=== PATIENT | male | born 1935 | race African-American/Black ===

== ENCOUNTER → 2016-08-25 | Outpatient (CLI) | payer MEDICARE, OTHER | END | disposition home or self-care (01) | LOC: LAB.O 16:53 | PROVIDERS: ATTEND Family Medicine | DX: I10 Essential (primary) hypertension (principal); E11.40 Type 2 diabetes mellitus with diabetic neuropathy, unspecified; E29.1 Testicular hypofunction; Z12.5 Encounter for screening for malignant neoplasm of prostate | CPT/HCPCS: 36415; 80053; 80061; 82043; 82550; 82570; 83036; 84403; 85025; G0103 ==

== ENCOUNTER → 2016-09-08 | Outpatient (CLI) | payer MEDICARE, OTHER ==
--- NOTE | 2016-09-10 04:30 | MRI ---
Procedure: MR BRAIN WITHOUT IV CONTRAST Exam Date: 09/08/2016 Ordering Provider: JACQUES CARRASCO Clinical Indication: PARKINSON'S DISEASE Comparison: 05/17/2016 CT head Technique: Multiplanar MRI of the brain was obtained without the administration of IV contrast. Findings: Mild cerebral and cerebellar volume loss. There is no midline shift or hydrocephalus. T2/FLAIR hyperintensities in the periventricular and subcortical white matter are nonspecific but likely related to chronic ischemic small vessel disease. There is normal signal in the cerebellum. There is normal signal within the brainstem. There is no evidence of an acute infarct. There is no parenchymal hemorrhage. The pituitary gland is normal in size. There are no pineal masses. There are normal intracranial vascular flow voids. The craniocervical junction is unremarkable. There is normal signal within the paranasal sinuses. The orbits are intact. IMPRESSION: 1. No acute intracranial abnormality demonstrated. 2. Mild chronic ischemic small vessel disease. Electronically signed by: Aidan Harrison MD 09/10/2016 4:31 AM CDT
--- NOTE | 2016-09-10 06:04 | MRI ---
Procedure: MR BRAIN ANGIOGRAPHY WITHOUT IV CONTRAST Exam Date: 09/08/2016 Ordering Provider: JACQUES CARRASCO Clinical Indication: NEUROPATHY Comparison: None Technique: Technique: 3-D [id number] MRA of the brain was obtained without the administration of IV contrast. 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 The intracranial segments of the internal carotid arteries are otherwise unremarkable. The anterior communicating artery is unremarkable. The anterior and middle cerebral arteries are unremarkable to the level of the A2 and M2 branches. The posterior cerebral arteries are unremarkable. Visualized vertebral arteries as well as the basilar artery are unremarkable. No MRA evidence of aneurysm measuring greater than 2 mm. MRA may be insensitive for the detection of smaller aneurysms. IMPRESSION: 1. 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 2. Examination is otherwise unremarkable. Electronically signed by: Aidan Harrison MD 09/10/2016 6:04 AM CDT
--- NOTE | 2016-09-10 06:22 | MRI ---
Procedure: MR BRAIN ANGIOGRAPHY WITHOUT IV CONTRAST Exam Date: 09/08/2016 Ordering Provider: JACQUES CARRASCO Clinical Indication: CERVICAL DISC DISORDER Comparison: None Technique: 3-D [id number] MRA of the neck was obtained without the administration of IV contrast. Findings: The innominate artery is patent without stenosis. The visualized subclavian arteries are patent without stenosis. The right common carotid artery is patent without stenosis. The cervical portion of the right internal carotid artery is patent without significant stenosis. The left common carotid artery is patent without stenosis. The cervical portion of the left internal carotid artery is patent without significant stenosis. The vertebral arteries are widely patent without stenosis. The basilar artery is normal. Impression: 1. Unremarkable MRA of the neck. No stenosis identified by criteria similar to NASCET. Electronically signed by: Aidan Harrison MD 09/10/2016 6:22 AM CDT
== END | disposition home or self-care (01) ==
LOC: LAB.O 10:50
PROVIDERS: ATTEND Psychiatry & Neurology Neurology
DX: G60.3 Idiopathic progressive neuropathy (principal); F01.50 Vascular dementia, unspecified severity, without behavioral disturbance, psychotic disturbance, mood disturbance, and anxiety; G20 Parkinson's disease; M50.123 Cervical disc disorder at C6-C7 level with radiculopathy; M51.16 Intervertebral disc disorders with radiculopathy, lumbar region; Z01.812 Encounter for preprocedural laboratory examination

== ENCOUNTER → 2017-07-13 | Outpatient (CLI) | payer MEDICARE, OTHER ==
--- NOTE | 2017-07-14 08:32 | US ---
EXAM DESCRIPTION: Carotid Duplex CLINICAL HISTORY: OCCLUSION AND STENOSIS OF ALEJANDRO CAR ARTERIES COMPARISON: None Available. TECHNIQUE: Carotid Doppler ultrasound FINDINGS: Right Submitted images show no significant stenosis is seen in the common carotid, internal carotid or external carotid arteries. Intimal thickening is seen in the common carotid artery with mild calcified plaque at the right carotid bulb. The following flow velocities were obtained: Common carotid artery peak systolic flow velocity measures 66 cm/s. Internal carotid artery peak systolic flow velocity measures 69 cm/s. External carotid artery peak systolic flow velocity measures 60.6 cm/s. Flow in the right vertebral artery is antegrade. The right internal carotid to common carotid peak systolic flow velocity ratio equals 1.0 which is normal. Left Submitted images show normal caliber of the left common carotid, internal carotid and external carotid arteries with no significant stenosis. There is diffuse intimal thickening of the left common carotid artery which is mildly tortuous. Mild plaque at the left carotid bulb. The following flow velocities were obtained: Common carotid artery peak systolic flow velocity measures 81 cm/s. Internal carotid artery peak systolic flow velocity measures 60 cm/s. External carotid artery peak systolic flow velocity measures 76 cm/s. Flow in the left vertebral artery is antegrade. The left internal carotid to common carotid peak systolic flow velocity ratio of 0.7 is normal. IMPRESSION: No significant stenosis. Electronically signed by: Paco Ly MD 07/14/2017 8:30 AM CDT
== END ==
LOC: US 15:11
PROVIDERS: ATTEND Family Medicine
DX: I65.23 Occlusion and stenosis of bilateral carotid arteries (principal)

== ENCOUNTER → 2018-01-26 | Outpatient (CLI) | payer MEDICARE, OTHER | LOC: GMAJ 17:17 | PROVIDERS: ATTEND Family Medicine | DX: Z12.5 Encounter for screening for malignant neoplasm of prostate (principal) ==

== ENCOUNTER → 2019-01-24 | Outpatient (CLI) | payer MEDICARE, OTHER ==
--- NOTE | 2019-01-25 08:58 | CT ---
EXAM DESCRIPTION: Abdomen w/o Contrast CLINICAL HISTORY: 83 years, Male, INTRA-ABDOMINAL AND PELVIC PAIN COMPARISON: None. TECHNIQUE: CT of the abdomen is performed according to our non contrast protocol. FINDINGS: Small nodular densities associated with pleural surfaces consistent with intrapulmonary lymph nodes near the right minor fissure, right major fissure and left lower lobe posterior pleural surface. No other nodules to suggest a malignant process. The lung bases are otherwise clear. Heart is prominent in size. Liver, spleen, and pancreas are unremarkable. No calcified stones in the gallbladder. Adrenal glands appear normal. No right renal stones or hydronephrosis. Multiple renal lesions consistent with cysts. The largest in the posterior mid to upper left kidney measures 4.6 cm. Density measurements range from 8-16 Hounsfield units, consistent with cystic nature. Left renal calculus in the posterior mid left kidney measures 5 mm. Calcification in the upper left renal hilum is vascular. Multiple left renal lesions consistent with cysts. The largest in the posterolateral mid left kidney measures 4.6 cm. Cystic structure which could be an enlarged renal pelvis or parapelvic cyst in the hilum measures 4.9 cm. Parapelvic cyst is favored. IV contrast would be needed to clarify this however. The left renal lesions have density measurements 12-16 Hounsfield units consistent with cysts. Small bowel loops appear normal in caliber with normal wall thickness. There is no lymphadenopathy, inflammation, or free fluid observed. Coronal and sagittal reformatted images confirm the findings. IMPRESSION: Nonobstructing left renal calculus 5 mm. Multiple renal lesions consistent with cysts. This exam was performed according to our departmental dose-optimization program, which includes automated exposure control, adjustment of the mA and/or kV according to patient size and/or use of iterative reconstruction technique. Total DLP equals 617.79 mGycm. Electronically signed by: Paco Ly MD 01/25/2019 8:57 AM CDT
== END ==
LOC: CT 14:00
PROVIDERS: ATTEND Family Medicine
DX: R19.00 Intra-abdominal and pelvic swelling, mass and lump, unspecified site (principal); N20.0 Calculus of kidney; K76.9 Liver disease, unspecified

== ENCOUNTER 2019-10-02 21:10 | Emergency (ER) | payer MEDICARE, OTHER ==
[2019-10-02] MEDS ORDERED: cloNIDine HCL 0.1 MG TAB PO ONE (21:33)
--- NOTE | 2019-10-02 21:37 | ED.PDOC ---
History of Present Illness - General Chief Complaint: Blood Pressure Problem Stated Complaint: elevated Blood pressure Time Seen by Provider: 10/02/19 21:11 Source: patient, family - Exam Limitations: no limitations - History of Present Illness Initial Comments: Pt reports he went in for general checkup at ~10a this morning. He had his vitals checked and saw a nurse, but didn't see a physician. He wasn't discharged with any information other than that he should check his BP at 8p tonight to see if it was any better. He checked his BP at 8p and said it was 169/111. He says he feels at baseline and has no symptoms of any kind. He denies CP, SOB, ANN, dizziness, palpitations, KASEY. He said his appetite is normal, has nl UOP and BM's. He says he's had the dx of HTN for "a long time," but hasn't taken his BP "for a while." He couldn't specify the last time he took his BP regularly. I also spoke to , who corroborated the above story. Improving Factors: nothing Worsening Factors: nothing Associated Symptoms: denies symptoms Allergies/Adverse Reactions: Allergies NO KNOWN ALLERGY Allergy (Verified 10/02/19 21:54) Home Medications: Ambulatory Orders Amlodipine Besylate-Valsartan [Amlodipine Besylate/Valsa 10-320 mg] 1 tab PO 10/02/19 Amlodipine Besylate-Valsartan [Amlodipine Besylate/Valsa 5-160 mg] 1 tab PO DAILY #30 tab 10/02/19 Aspirin [Aspirin Childrens] 81 mg PO DAILY 10/02/19 Carvedilol Phosphate [Coreg Cr] 40 mg PO 10/02/19 Donepezil HCl [Aricept] 5 mg PO 10/02/19 Memantine [Namenda] 10 mg PO 10/02/19 Metformin HCl [Metformin Hydrochloride E] 500 mg PO BID 10/02/19 Pramipexole Dihydrochloride [Mirapex] 0.25 mg PO BEDTIME 10/02/19 RX: Carvedilol 12.5 mg PO 10/02/19 RX: Desloratadine 10/02/19 RX: Glimepiride 2 mg PO 10/02/19 RX: Pravastatin Sodium 40 mg PO DAILY 10/02/19 Review of Systems - Review of Systems Constitutional: States: no symptoms reported. Denies: chills, diaphoresis, fever, malaise, weakness, other EENTM: States: no symptoms reported Respiratory: States: no symptoms reported. Denies: cough, orthopnea, short of breath Cardiology: States: no symptoms reported. Denies: chest pain, edema, palpitations, syncope Gastrointestinal/Abdominal: States: no symptoms reported. Denies: abdominal pain, constipation, diarrhea, nausea, vomiting Genitourinary: States: no symptoms reported. Denies: dysuria, frequency, hematuria Musculoskeletal: States: no symptoms reported. Denies: back pain Skin: States: no symptoms reported Neurological: States: no symptoms reported Endocrine: States: no symptoms reported Past Medical History (General) - Patient Medical History Hx Congestive Heart Failure: No Hx Hypertension: Yes Hx Diabetes: Yes - Vaccination History Hx Tetanus, Diphtheria Vaccination: No - Social History Hx Tobacco Use: No Hx Chewing Tobacco Use: No Hx Alcohol Use: No Hx Substance Use: No Hx Substance Use Treatment: No Hx Depression: No - Female History Patient : No Family Medical History - Family History Mother Family History: Unknown Living Status: Unknown Physical Exam - Physical Exam General Appearance: Alert, Comfortable, No apparent distress Eyes, Ears, Nose, Throat Exam: PERRL/EOMI, normal ENT inspection Neck: non-tender Respiratory: chest non-tender, lungs clear, normal breath sounds, no respiratory distress, no accessory muscle use Cardiovascular/Chest: normal peripheral pulses, regular rate, rhythm, no edema, no gallop, no JVD, no murmur Gastrointestinal/Abdominal: normal bowel sounds, non tender, soft, no organomegaly, no pulsatile mass Extremity: normal range of motion, no pedal edema Neurologic: alert, normal mood/affect, oriented x 3 Skin Exam: normal color Progress - Progress Progress: 10/02/19 21:38 Considering pt asymptomatic, will do basic workup to ensure no underlying acute issue. Pt understands goal is not to normalize BP but to ensure it is improving. 10/02/19 21:32 Laboratory Results WBC 4.6 K/mm3 (4.8-10.8) L 10/02/19 21:40 RBC 4.66 M/mm3 (4.70-6.10) L 10/02/19 21:40 Hgb 11.5 gm/dL (14.0-18.0) L 10/02/19 21:40 Hct 35.3 % (42.0-52.0) L 10/02/19 21:40 MCV 75.8 fl (80.0-94.0) L 10/02/19 21:40 MCH 24.7 pg (27.0-31.0) L 10/02/19 21:40 MCHC 32.6 g/dL (33.0-37.0) L 10/02/19 21:40 RDW 16.3 % (11.5-14.5) H 10/02/19 21:40 Plt Count 132 K/mm3 (130-400) 10/02/19 21:40 MPV 9.5 fl (7.40-10.4) 10/02/19 21:40 Absolute Neuts (auto) 2.30 K/uL (1.8-6.8) 10/02/19 21:40 Absolute Lymphs (auto) 1.80 K/uL (1.0-3.4) 10/02/19 21:40 Absolute Monos (auto) 0.40 K/uL (0.2-0.8) 10/02/19 21:40 Absolute Eos (auto) 0.10 K/uL (0.0-0.4) 10/02/19 21:40 Absolute Basos (auto) 0.00 K/uL (0.0-0.1) 10/02/19 21:40 Neutrophils % 49.7 % (42.0-78.0) 10/02/19 21:40 Lymphocytes % 39.3 % (20.0-50.0) 10/02/19 21:40 Monocytes % 9.2 % (2.0-9.0) H 10/02/19 21:40 Eosinophils % 1.2 % (1.0-5.0) 10/02/19 21:40 Basophils % 0.6 % (0.0-2.0) 10/02/19 21:40 Normal RBC Morphology 1+aniso 1+hypochromia 1+ovalocytes Plts shira adequate Stain quality accept 10/02/19 21:40 Normal RBC Morphology 1+aniso 1+hypochromia 1+ovalocytes Plts shira adequate Stain quality accept 10/02/19 21:40 Normal RBC Morphology 1+aniso 1+hypochromia 1+ovalocytes Plts shira adequate Stain quality accept 10/02/19 21:40 Normal RBC Morphology 1+aniso 1+hypochromia 1+ovalocytes Plts shira adequate Stain quality accept 10/02/19 21:40 Normal RBC Morphology 1+aniso 1+hypochromia 1+ovalocytes Plts shira adequate Stain quality accept 10/02/19 21:40 Sodium 140 mmol/L (135-145) 10/02/19 21:40 Potassium 4.0 mmol/L (3.6-5.0) 10/02/19 21:40 Chloride 105 mmol/L (101-111) 10/02/19 21:40 Carbon Dioxide 28 mmol/L (21-31) 10/02/19 21:40 Anion Gap 11.0 (12-18) L 10/02/19 21:40 BUN 21 mg/dL (7-18) H 10/02/19 21:40 Creatinine 1.63 mg/dL (0.6-1.3) H 10/02/19 21:40 BUN/Creatinine Ratio 12.9 (10-20) 10/02/19 21:40 Random Glucose 119 mg/dL (70-105) H 10/02/19 21:40 Serum Osmolality 283.5 mOsm/L (275-295) 10/02/19 21:40 Calcium 8.9 mg/dL (8.4-10.2) 10/02/19 21:40 Total Bilirubin 0.9 mg/dL (0.2-1.0) 10/02/19 21:40 AST 14 IU/L (10-42) 10/02/19 21:40 ALT 11 IU/L (10-60) 10/02/19 21:40 Alkaline Phosphatase 75 IU/L (42-121) 10/02/19 21:40 Troponin I < 0.02 ng/mL (0.01-0.05) 10/02/19 21:40 Serum Total Protein 7.6 gm/dL (6.4-8.2) 10/02/19 21:40 Albumin 3.8 g/dl (3.2-5.5) 10/02/19 21:40 Globulin 3.8 gm/dL (2.3-3.5) H 10/02/19 21:40 Albumin/Globulin Ratio 1.0 (1.1-1.9) L 10/02/19 21:40 10/02/19 22:13 SBP down to 203. Pt still asymptomatic at this time. He denies CP, SOB, palpitations, ANN at this time. Pt has reported 0/10 pain throughout and has not appeared in any general or resp distress throughout stay. Discussed workup with pt and spouse. I stressed urgency of compliance with BP meds and need for close f/u so that BP continues to improve. Since pt's HR ~60 bpm at this time, will not restart carvedilol. I explained to pt and that he will have to be tapered up on BP meds. I asked that they monitor BP and keep BP log, and to contact Dr. Guerrero starting tomorrow to continue to work on lowering BP. - EKG/XRAY/CT EKG: Sinus - nl ST segments, nl intervals, nl axis, no q waves Departure - Departure Clinical Impression: Accelerated hypertension, Renal insufficiency, Noncompliance with medication regimen Time of Disposition: 22:15 Disposition: Discharge to Home or Self Care Condition: Fair Departure Forms: ED Discharge - Pt. Copy, Patient Portal Self Enrollment Instructions: DI for High Blood Pressure Diet: low salt diet Referrals: King Guerrero MD [Primary Care Provider] - 1 Week Prescriptions: Amlodipine Besylate-Valsartan [Amlodipine Besylate/Valsa 5-160 mg] 1 tab PO DAILY #30 tab Home Medications: Ambulatory Orders Amlodipine Besylate-Valsartan [Amlodipine Besylate/Valsa 10-320 mg] 1 tab PO 10/02/19 Amlodipine Besylate-Valsartan [Amlodipine Besylate/Valsa 5-160 mg] 1 tab PO DAILY #30 tab 10/02/19 Aspirin [Aspirin Childrens] 81 mg PO DAILY 10/02/19 Carvedilol Phosphate [Coreg Cr] 40 mg PO 10/02/19 Donepezil HCl [Aricept] 5 mg PO 10/02/19 Memantine [Namenda] 10 mg PO 10/02/19 Metformin HCl [Metformin Hydrochloride E] 500 mg PO BID 10/02/19 Pramipexole Dihydrochloride [Mirapex] 0.25 mg PO BEDTIME 10/02/19 RX: Carvedilol 12.5 mg PO 10/02/19 RX: Desloratadine 10/02/19 RX: Glimepiride 2 mg PO 10/02/19 RX: Pravastatin Sodium 40 mg PO DAILY 10/02/19 Additional Instructions: Please check blood pressure twice daily and keep log. Continue to stay in close contact with primary physician to continue adjusting blood pressure meds.
[2019-10-02 21:43] VITALS: TEMP 98.2
[2019-10-02 22:23] VITALS: O2SAT 99
[2019-10-02] MEDS ORDERED: amLODIPine BESYLATE 5 MG TAB ONE (22:46)
[2019-10-02] MEDS ORDERED: VALSARTAN 80 MG TAB ONE (22:47)
[2019-10-02] MEDS ORDERED: amLODIPine BESYLATE 5 MG TAB PO ONE (22:51)
[2019-10-02] MEDS ORDERED: VALSARTAN 80 MG TAB PO ONE (22:51)
[2019-10-02 23:04] VITALS: BP 204/82
== END 2019-10-02 23:04 | disposition home or self-care (01) ==
LOC: ER 21:10
DX: I10 Essential (primary) hypertension (principal); N28.9 Disorder of kidney and ureter, unspecified; E11.9 Type 2 diabetes mellitus without complications; Z91.14 Patient's other noncompliance with medication regimen; Z79.899 Other long term (current) drug therapy; Z79.82 Long term (current) use of aspirin

== ENCOUNTER 2020-01-09 23:33 | Emergency (ER) | payer MEDICARE, OTHER ==
--- NOTE | 2020-01-10 00:04 | ED.PDOC ---
History of Present Illness - General Chief Complaint: Blood Pressure Problem Stated Complaint: elevated BP Time Seen by Provider: 01/09/20 23:58 - History of Present Illness Initial Comments: 84 yo M pt of Dr. Guerrero [facility] HTN DM presents to the ED at bedside c/o 'blood pressure problems' today. Highest read 212/96. Pt. reports sporadic compliance with medication but is here at the behest of his . Denies fever cough sob recent travel or contact with covid19. Denies fever chills nausea vomiting diarrhea chest pain sob diaphoresis. No change in diet rest bowel or bladder. Denies drinking or smoking admits HTN DM. No other c/o today. PPE worn-N95 surgical mask with attached face shield over N95 gloves and face shield over that Allergies/Adverse Reactions: Allergies NO KNOWN ALLERGY Allergy (Verified 10/02/19 21:54) Home Medications: Ambulatory Orders Amlodipine Besylate-Valsartan [Amlodipine Besylate/Valsa 10-320 mg] 1 tab PO 10/02/19 Amlodipine Besylate-Valsartan [Amlodipine Besylate/Valsa 5-160 mg] 1 tab PO DAILY #30 tab 10/02/19 Aspirin [Aspirin Childrens] 81 mg PO DAILY 10/02/19 Carvedilol 12.5 mg PO 10/02/19 Carvedilol Phosphate [Coreg Cr] 40 mg PO 10/02/19 Desloratadine 10/02/19 Donepezil HCl [Aricept] 5 mg PO 10/02/19 Glimepiride 2 mg PO 10/02/19 Memantine [Namenda] 10 mg PO 10/02/19 Metformin HCl [Metformin Hydrochloride E] 500 mg PO BID 10/02/19 Pramipexole Dihydrochloride [Mirapex] 0.25 mg PO BEDTIME 10/02/19 Pravastatin Sodium 40 mg PO DAILY 10/02/19 Review of Systems - Review of Systems Constitutional: States: see HPI EENTM: States: see HPI Respiratory: States: see HPI Cardiology: States: see HPI Gastrointestinal/Abdominal: States: see HPI Genitourinary: States: see HPI Musculoskeletal: States: see HPI Skin: States: see HPI Neurological: States: see HPI Endocrine: States: see HPI Hematologic/Lymphatic: States: see HPI All other Systems: Reviewed and Negative Past Medical History (General) - Patient Medical History Hx Congestive Heart Failure: No Hx Hypertension: Yes Hx Diabetes: Yes - Vaccination History Hx Tetanus, Diphtheria Vaccination: No Hx Influenza Vaccination: Yes Hx Pneumococcal Vaccination: No - Social History Hx Tobacco Use: No Hx Chewing Tobacco Use: No Hx Alcohol Use: No Hx Substance Use: No Hx Substance Use Treatment: No Hx Depression: No - Female History Patient : No Family Medical History - Family History Mother Family History: Unknown Living Status: Unknown Physical Exam - Physical Exam General Appearance: No apparent distress Eye Exam: bilateral normal Ears, Nose, Throat: normal ENT inspection Neck: non-tender, full range of motion Respiratory: no respiratory distress Cardiovascular/Chest: regular rate, rhythm Gastrointestinal/Abdominal: non tender, soft Rectal Exam: deferred Back Exam: normal inspection Extremity: normal range of motion, non-tender Neurologic: no motor/sensory deficits Skin Exam: normal color Progress - Progress Progress: 01/10/20 00:05 A/P-HTN Medication Non Compliance-iv cbc cmp lipase troponin bnp ekg cxr surveillance monitor pulse ox reassess labetalol - Results/Orders Results/Orders: EKG-non specific TW changes No STEMI NSR 71bpm Laboratory Tests 01/10/20 01/10/20 01/10/20 00:15 00:20 00:20 WBC 4.2 L RBC 4.37 L Hgb 10.9 L Hct 33.5 L MCV 76.7 L MCH 24.9 L MCHC 32.5 L RDW 16.3 H Plt Count 134 MPV 9.3 Absolute Neuts (auto) 1.80 Absolute Lymphs (auto) 2.00 Absolute Monos (auto) 0.40 Absolute Eos (auto) 0.10 Absolute Basos (auto) 0.00 Neutrophils % 41.6 L Lymphocytes % 47.0 Monocytes % 9.5 H Eosinophils % 1.3 Basophils % 0.6 Normal RBC Morphology Stain quality accept PT 9.9 INR 1.00 PTT (SP) 24.0 Sodium Potassium Chloride Carbon Dioxide Anion Gap BUN Creatinine BUN/Creatinine Ratio Random Glucose Serum Osmolality Calcium Total Bilirubin AST ALT Alkaline Phosphatase Troponin I B-Natriuretic Peptide Serum Total Protein Albumin Globulin Albumin/Globulin Ratio Lipase Urine Color Yellow Urine Appearance Clear Urine pH 6.0 Ur Specific Pledger 1.020 Urine Protein Negative Urine Glucose (UA) Negative Urine Ketones Negative Urine Blood Negative Urine Nitrite Negative Urine Bilirubin Negative Urine Urobilinogen 0.2 Ur Leukocyte Esterase Negative Urine RBC 0 Urine WBC 0 Ur Epithelial Cells 0 Urine Bacteria 0 01/10/20 01/10/20 01/10/20 00:20 00:20 00:20 WBC RBC Hgb Hct MCV MCH MCHC RDW Plt Count MPV Absolute Neuts (auto) Absolute Lymphs (auto) Absolute Monos (auto) Absolute Eos (auto) Absolute Basos (auto) Neutrophils % Lymphocytes % Monocytes % Eosinophils % Basophils % Normal RBC Morphology PT INR PTT (SP) Sodium 143 Potassium 3.2 L Chloride 108 Carbon Dioxide 25 Anion Gap 13.2 BUN 20 H Creatinine 1.19 BUN/Creatinine Ratio 16.8 Random Glucose 133 H Serum Osmolality 289.5 Calcium 8.3 L Total Bilirubin 0.8 AST 14 ALT 11 Alkaline Phosphatase 61 Troponin I < 0.02 B-Natriuretic Peptide 21.5 Serum Total Protein 6.6 Albumin 3.4 Globulin 3.2 Albumin/Globulin Ratio 1.1 Lipase 81 H Urine Color Urine Appearance Urine pH Ur Specific [place] Urine Protein Urine Glucose (UA) Urine Ketones Urine Blood Urine Nitrite Urine Bilirubin Urine Urobilinogen Ur Leukocyte Esterase Urine RBC Urine WBC Ur Epithelial Cells Urine Bacteria EXAM DESCRIPTION: Chest,1 View CLINICAL HISTORY: 84 years Male, HTN Cough COMPARISON: None TECHNIQUE: Single AP chest radiograph. FINDINGS: Clear lungs. No pneumothorax or pleural effusion. Normal cardiomediastinal contour. Normal osseous structures. IMPRESSION: 1. No discrete active cardiopulmonary process. Please note that chest radiographs have low sensitivity for detection of subtle groundglass opacities. Electronically signed by: Ron Dominguez MD 01/10/2020 12:17 AM CDT Laboratory Tests 01/10/20 01/10/20 01/10/20 00:15 00:20 00:20 WBC 4.2 L RBC 4.37 L Hgb 10.9 L Hct 33.5 L MCV 76.7 L MCH 24.9 L MCHC 32.5 L RDW 16.3 H Plt Count 134 MPV 9.3 Absolute Neuts (auto) 1.80 Absolute Lymphs (auto) 2.00 Absolute Monos (auto) 0.40 Absolute Eos (auto) 0.10 Absolute Basos (auto) 0.00 Neutrophils % 41.6 L Lymphocytes % 47.0 Monocytes % 9.5 H Eosinophils % 1.3 Basophils % 0.6 Normal RBC Morphology Stain quality accept PT 9.9 INR 1.00 PTT (SP) 24.0 Sodium Potassium Chloride Carbon Dioxide Anion Gap BUN Creatinine BUN/Creatinine Ratio Random Glucose Serum Osmolality Calcium Total Bilirubin AST ALT Alkaline Phosphatase Troponin I B-Natriuretic Peptide Serum Total Protein Albumin Globulin Albumin/Globulin Ratio Lipase Urine Color Yellow Urine Appearance Clear Urine pH 6.0 Ur Specific [place] 1.020 Urine Protein Negative Urine Glucose (UA) Negative Urine Ketones Negative Urine Blood Negative Urine Nitrite Negative Urine Bilirubin Negative Urine Urobilinogen 0.2 Ur Leukocyte Esterase Negative Urine RBC 0 Urine WBC 0 Ur Epithelial Cells 0 Urine Bacteria 0 01/10/20 01/10/20 01/10/20 00:20 00:20 00:20 WBC RBC Hgb Hct MCV MCH MCHC RDW Plt Count MPV Absolute Neuts (auto) Absolute Lymphs (auto) Absolute Monos (auto) Absolute Eos (auto) Absolute Basos (auto) Neutrophils % Lymphocytes % Monocytes % Eosinophils % Basophils % Normal RBC Morphology PT INR PTT (SP) Sodium 143 Potassium 3.2 L Chloride 108 Carbon Dioxide 25 Anion Gap 13.2 BUN 20 H Creatinine 1.19 BUN/Creatinine Ratio 16.8 Random Glucose 133 H Serum Osmolality 289.5 Calcium 8.3 L Total Bilirubin 0.8 AST 14 ALT 11 Alkaline Phosphatase 61 Troponin I < 0.02 B-Natriuretic Peptide 21.5 Serum Total Protein 6.6 Albumin 3.4 Globulin 3.2 Albumin/Globulin Ratio 1.1 Lipase 81 H Urine Color Urine Appearance Urine pH Ur Specific P[place] Urine Protein Urine Glucose (UA) Urine Ketones Urine Blood Urine Nitrite Urine Bilirubin Urine Urobilinogen Ur Leukocyte Esterase Urine RBC Urine WBC Ur Epithelial Cells Urine Bacteria 01/10/20 03:11 WBC RBC Hgb Hct MCV MCH MCHC RDW Plt Count MPV Absolute Neuts (auto) Absolute Lymphs (auto) Absolute Monos (auto) Absolute Eos (auto) Absolute Basos (auto) Neutrophils % Lymphocytes % Monocytes % Eosinophils % Basophils % Normal RBC Morphology PT INR PTT (SP) Sodium Potassium Chloride Carbon Dioxide Anion Gap BUN Creatinine BUN/Creatinine Ratio Random Glucose Serum Osmolality Calcium Total Bilirubin AST ALT Alkaline Phosphatase Troponin I < 0.02 B-Natriuretic Peptide Serum Total Protein Albumin Globulin Albumin/Globulin Ratio Lipase Urine Color Urine Appearance Urine pH Ur Specific [place] Urine Protein Urine Glucose (UA) Urine Ketones Urine Blood Urine Nitrite Urine Bilirubin Urine Urobilinogen Ur Leukocyte Esterase Urine RBC Urine WBC Ur Epithelial Cells Urine Bacteria Departure - Departure Clinical Impression: Uncontrolled hypertension, Hypokalemia Time of Disposition: 03:47 Disposition: Discharge to Home or Self Care Condition: Good Departure Forms: ED Discharge - Pt. Copy, Patient Portal Self Enrollment Instructions: DI for High Blood Pressure Referrals: King Guerrero MD [Primary Care Provider] - 1-2 Days Home Medications: Ambulatory Orders Amlodipine Besylate-Valsartan [Amlodipine Besylate/Valsa 10-320 mg] 1 tab PO 10/02/19 Amlodipine Besylate-Valsartan [Amlodipine Besylate/Valsa 5-160 mg] 1 tab PO DAILY #30 tab 10/02/19 Aspirin [Aspirin Childrens] 81 mg PO DAILY 10/02/19 Carvedilol 12.5 mg PO 10/02/19 Carvedilol Phosphate [Coreg Cr] 40 mg PO 10/02/19 Desloratadine 10/02/19 Donepezil HCl [Aricept] 5 mg PO 10/02/19 Glimepiride 2 mg PO 10/02/19 Memantine [Namenda] 10 mg PO 10/02/19 Metformin HCl [Metformin Hydrochloride E] 500 mg PO BID 10/02/19 Pramipexole Dihydrochloride [Mirapex] 0.25 mg PO BEDTIME 10/02/19 Pravastatin Sodium 40 mg PO DAILY 10/02/19
--- NOTE | 2020-01-10 00:19 | RAD ---
EXAM DESCRIPTION: Chest,1 View CLINICAL HISTORY: 84 years Male, HTN Cough COMPARISON: None TECHNIQUE: Single AP chest radiograph. FINDINGS: Clear lungs. No pneumothorax or pleural effusion. Normal cardiomediastinal contour. Normal osseous structures. IMPRESSION: 1. No discrete active cardiopulmonary process. Please note that chest radiographs have low sensitivity for detection of subtle groundglass opacities. Electronically signed by: Ron Dominguez MD 01/10/2020 12:17 AM CDT
[2020-01-10] MEDS ORDERED: LABETALOL INJ 5 MG/ML VIAL IV ONE ×2 (02:32)
[2020-01-10 02:52] VITALS: O2SAT 100
[2020-01-10] MEDS ORDERED: POTASSIUM CHLORIDE ELIXIR 20 MEQ/15 ML UD PO ONE (03:45)
[2020-01-10 04:47] VITALS: BP 196/87; TEMP 97.6
== END 2020-01-10 04:57 | disposition home or self-care (01) ==
LOC: ER 23:33
DX: I10 Essential (primary) hypertension (principal); E87.6 Hypokalemia; E11.9 Type 2 diabetes mellitus without complications; Z20.828 Contact with and (suspected) exposure to other viral communicable diseases; Z79.84 Long term (current) use of oral hypoglycemic drugs; Z79.82 Long term (current) use of aspirin; Z79.899 Other long term (current) drug therapy

== ENCOUNTER 2020-04-18 10:49 | Emergency (ER) | payer MEDICARE, OTHER ==
[2020-04-18] MEDS ORDERED: SODIUM CHLORIDE 0.9% 1000ML 1,000 ML IVS ONE (11:27)
[2020-04-18] MEDS ORDERED: LABETALOL 200 MG TAB PO ONE (11:27)
[2020-04-18 11:31] VITALS: O2SAT 99
--- NOTE | 2020-04-18 12:35 | CT ---
PROVIDED CLINICAL HISTORY/REASON FOR EXAM: recurrent falls, dizziness TECHNIQUE: Volumetric CT data of the brain was obtained without intravenous contrast. This exam was performed according to our departmental dose-optimization program, which includes automated exposure control, adjustment of the mA and/or kV according to patient size and/or use of iterative reconstruction technique. COMPARISON: September 08, 2016 FINDINGS: Generalized intracranial volume loss and chronic small vessel ischemic change. Septum pellucidum and third ventricle are midline. No acute infarction is evident by CT. No acute hemorrhage is present. No mass or mass effect is present. The calvaria and soft tissues are unremarkable. The visualized paranasal sinuses are unremarkable. IMPRESSION: No acute intracranial abnormality. Electronically signed by: Melecio Hoff MD 04/18/2020 12:34 PM [employer]GAL AD[employer]ISTRATIVE SECRETARY
--- NOTE | 2020-04-18 12:36 | RAD ---
EXAM: Abdomen Series INDICATION: 84 years Male, nvd COMPARISON: None available FINDINGS: Acute abdominal series was obtained on 3 images. Heart size is within normal limits. No pulmonary infiltrate or pleural effusion. No pneumothorax. No free air beneath the diaphragm. Scattered air is present within nondilated loops of small bowel and colon. There may be a short air-fluid level probably within the colon in the right abdomen on the upright view. No convincing evidence for mechanical bowel obstruction. Air is present in the region of the rectosigmoid colon. No evidence for pneumoperitoneum. Degenerative changes in the spine and hips. IMPRESSION: 1. No evidence for acute cardiopulmonary process. 2. Possible fluid within the nondilated proximal colon. This could be seen in diarrheal state. 3. No convincing evidence for mechanical bowel obstruction. Electronically signed by: Laverne Joseph MD 04/18/2020 12:35 PM [facility]
--- NOTE | 2020-04-18 15:06 | ED.PDOC ---
History of Present Illness - General Chief Complaint: GI Problem Stated Complaint: Nausea, vomiting, loss of balance, weakness Time Seen by Provider: 04/18/20 10:51 Source: patient Exam Limitations: no limitations - History of Present Illness Initial Comments: The patient is a 84-year-old -Irish male presented emergency room secondary to several issues that of been progressive over the last 3 to 4 days. He has had 2 falls in that time. He is also had some persistent nausea and some intermittent diarrhea. His oral intake has been poor. No real abdominal pain. No fever. He has had 4 episodes of vomiting. No blood and no bile. No blood in the stool. No rash. The patient did not take his blood pressure medications this morning. He is currently very upset because he learned he lost his eldest granddaughter this morning. For the 2 falls, the patient had simply gotten dizzy while walking and had fallen. He hit the front of his head on 1 episode. No loss of consciousness. No blood thinners. No neck pain. He moves all extremities well. Timing/Duration: other - 4 days Severity: moderate Improving Factors: nothing Worsening Factors: nothing Associated Symptoms: loss of appetite, malaise, nausea/vomiting, weakness Allergies/Adverse Reactions: Allergies NO KNOWN ALLERGY Allergy (Verified 04/18/20 11:18) Home Medications: Ambulatory Orders Amlodipine Besylate-Valsartan [Amlodipine Besylate/Valsa 10-320 mg] 1 tab PO 10/02/19 Amlodipine Besylate-Valsartan [Amlodipine Besylate/Valsa 5-160 mg] 1 tab PO DAILY #30 tab 10/02/19 Aspirin [Aspirin Childrens] 81 mg PO DAILY 10/02/19 Carvedilol 12.5 mg PO 10/02/19 Carvedilol Phosphate [Coreg Cr] 40 mg PO 10/02/19 Desloratadine 10/02/19 Donepezil HCl [Aricept] 5 mg PO 10/02/19 Glimepiride 2 mg PO 10/02/19 Memantine [Namenda] 10 mg PO 10/02/19 Metformin HCl [Metformin Hydrochloride E] 500 mg PO BID 10/02/19 Pramipexole Dihydrochloride [Mirapex] 0.25 mg PO BEDTIME 10/02/19 Pravastatin Sodium 40 mg PO DAILY 10/02/19 Ondansetron Odt [Zofran ODT] 4 mg PO Q8HR PRN #5 tab 04/18/20 Review of Systems - Review of Systems Constitutional: States: malaise, weakness - Generalized EENTM: States: no symptoms reported Respiratory: States: no symptoms reported Cardiology: States: no symptoms reported Gastrointestinal/Abdominal: States: diarrhea, nausea, vomiting Genitourinary: States: no symptoms reported Musculoskeletal: States: no symptoms reported Skin: States: no symptoms reported Neurological: States: no symptoms reported All other Systems: No Change from Baseline Past Medical History (General) - Patient Medical History Hx Seizures: No Hx Stroke: No Hx Dementia: No Hx Asthma: No Hx of COPD: No Hx Cardiac Disorders: No Hx Congestive Heart Failure: No Hx Pacemaker: No Hx Hypertension: Yes Hx Thyroid Disease: No Hx Diabetes: Yes Hx Gastroesophageal Reflux: No Hx Renal Disease: No Hx Cancer: No Hx of HIV: No Hx Hepatitis C: No Hx MRSA: No - Vaccination History Hx Tetanus, Diphtheria Vaccination: Yes Hx Influenza Vaccination: Yes Hx Pneumococcal Vaccination: Yes - Social History Hx Tobacco Use: No Hx Chewing Tobacco Use: No Hx Alcohol Use: No Hx Substance Use: No Hx Substance Use Treatment: No Hx Depression: No - Female History Patient : No Family Medical History - Family History Mother Family History: Unknown Living Status: Unknown Physical Exam - Physical Exam General Appearance: Alert, Comfortable, No apparent distress Eye Exam: bilateral normal Ears, Nose, Throat: hearing grossly normal, normal ENT inspection, normal pharynx Neck: full range of motion, supple, normal inspection Respiratory: lungs clear, normal breath sounds, no respiratory distress, no accessory muscle use Cardiovascular/Chest: normal peripheral pulses, regular rate, rhythm, no edema Peripheral Pulses: radial,right: 2+, radial,left: 2+ Gastrointestinal/Abdominal: non tender - Diastases recti is present, soft Rectal Exam: deferred Back Exam: no CVA tenderness, no vertebral tenderness Extremity: non-tender, normal inspection, no pedal edema, no calf tenderness, normal capillary refill 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 Progress - Progress Progress: 04/18/20 15:09 The patient is a 84-year-old male presented emergency room secondary to some nausea and diarrhea for the last few days. Based upon the lab work I believe is most likely the patient has a viral gastroenteritis. He does have a very mild elevation of the amylase and lipase which could indicate a very mild pancreatitis. In either event the recommendation is to keep very well-hydrated. He is to eat small frequent meals with low-fat foods. Obviously if the symptoms are worsening or he is starting to get significant pain then a repeat evaluation would be warranted. He has tested negative for coronavirus here today. Additionally the patient does have significant orthostasis. He did receive a liter of IV fluids here today which will likely help some with that. The drop in blood pressure likely did contribute to his 2 falls at home. He has been advised to wait a good 20 seconds before taking off when he stands up. Additionally he may benefit from a cane or a walker at home to prevent further falls. Also in the longer run he may benefit from physical therapy to improve strength and reduce falls. The patient may also benefit from a change to a blood pressure medication that does not reduce his heart rate so much in light of the orthostasis. He will be written for some Zofran to control any further nausea. ER warnings were given for any worsening. He will follow back up with his primary care doctor next week. liana [email or web address] [phone] - Results/Orders Results/Orders: Acute abdominal series appears benign. He does have some mild fluid levels in the large intestine consistent with a diarrheal state. Head CT is consistent with age. No acute trauma. Rapid coronavirus is negative. EKG shows sinus bradycardia 56 bpm. Normal axis. Normal R wave progression. No ST segment or T wave changes indicative of acute ischemia. Normal QT interval. Laboratory Tests 04/18/20 04/18/20 04/18/20 12:05 12:05 12:05 WBC 6.2 RBC 5.09 Hgb 12.4 L Hct 39.5 L MCV 77.6 L MCH 24.4 L MCHC 31.5 L RDW 16.7 H Plt Count 145 MPV 9.5 Absolute Neuts (auto) 4.90 Absolute Lymphs (auto) 0.90 L Absolute Monos (auto) 0.30 Absolute Eos (auto) 0.00 Absolute Basos (auto) 0.00 Neutrophils % 79.3 H Lymphocytes % 15.0 L Monocytes % 5.3 Eosinophils % 0.0 L Basophils % 0.4 Normal RBC Morphology Stain quality accept PT 10.4 INR 1.05 PTT (SP) 23.0 D-Dimer, Quantitative 1720.0 H* Sodium 139 Potassium 4.0 Chloride 103 Carbon Dioxide 25 Anion Gap 15.0 BUN 19 H Creatinine 1.36 H BUN/Creatinine Ratio 14.0 Random Glucose 169 H Hemoglobin A1c Serum Osmolality 283.7 Lactic Acid Calcium 9.3 Magnesium 2.0 Total Bilirubin 1.1 H AST 23 ALT 21 Alkaline Phosphatase 73 Creatine Kinase 156 CK-MB (CK-2) 3.3 CK-MB (CK-2) % Not Reportable Troponin I < 0.02 B-Natriuretic Peptide 76.8 Serum Total Protein 8.0 Albumin 4.0 Globulin 4.0 H Albumin/Globulin Ratio 1.0 L Amylase 275 H* Lipase 147 H TSH 0.15 L 04/18/20 04/18/20 12:05 12:05 WBC RBC Hgb Hct MCV MCH MCHC RDW Plt Count MPV Absolute Neuts (auto) Absolute Lymphs (auto) Absolute Monos (auto) Absolute Eos (auto) Absolute Basos (auto) Neutrophils % Lymphocytes % Monocytes % Eosinophils % Basophils % Normal RBC Morphology PT INR PTT (SP) D-Dimer, Quantitative Sodium Potassium Chloride Carbon Dioxide Anion Gap BUN Creatinine BUN/Creatinine Ratio Random Glucose Hemoglobin A1c 7.2 H Serum Osmolality Lactic Acid 1.9 Calcium Magnesium Total Bilirubin AST ALT Alkaline Phosphatase Creatine Kinase CK-MB (CK-2) CK-MB (CK-2) % Troponin I B-Natriuretic Peptide Serum Total Protein Albumin Globulin Albumin/Globulin Ratio Amylase Lipase TSH - EKG/XRAY/CT CT Ordered: Yes CT Interpretation Call Back: No Departure - Departure Clinical Impression: Orthostasis, Viral gastroenteritis Fall at home Qualifiers: Encounter type: initial encounter Qualified Code(s): W19.XXXA - Unspecified fall, initial encounter; Y92.009 - Unspecified place in unspecified non- institutional (private) residence as the place of occurrence of the external cause Disposition: Discharge to Home or Self Care Condition: Fair Departure Forms: ED Discharge - Pt. Copy, Patient Portal Self Enrollment Instructions: Viral Gastroenteritis, Adult (DC), Orthostatic Hypotension (DC) Diet: other - Low-fat Activity: increase activity as tolerated Referrals: King Guerrero MD [Primary Care Provider] - 1-2 Weeks Prescriptions: Ondansetron Odt [Zofran ODT] 4 mg PO Q8HR PRN #5 tab PRN Reason: Nausea--Moderate Home Medications: Ambulatory Orders Amlodipine Besylate-Valsartan [Amlodipine Besylate/Valsa 10-320 mg] 1 tab PO Amlodipine Besylate-Valsartan [Amlodipine Besylate/Valsa 5-160 mg] 1 tab PO DAILY #30 tab 10/02/19 Aspirin [Aspirin Childrens] 81 mg PO DAILY 10/02/19 Carvedilol 12.5 mg PO 10/02/19 Carvedilol Phosphate [Coreg Cr] 40 mg PO 10/02/19 Desloratadine 10/02/19 Donepezil HCl [Aricept] 5 mg PO 10/02/19 Glimepiride 2 mg PO 10/02/19 Memantine [Namenda] 10 mg PO 10/02/19 Metformin HCl [Metformin Hydrochloride E] 500 mg PO BID 10/02/19 Pramipexole Dihydrochloride [Mirapex] 0.25 mg PO BEDTIME 10/02/19 Pravastatin Sodium 40 mg PO DAILY 10/02/19 Ondansetron Odt [Zofran ODT] 4 mg PO Q8HR PRN #5 tab 04/18/20 Additional Instructions: The patient is a 84-year-old male presented emergency room secondary to some nausea and diarrhea for the last few days. Based upon the lab work I believe is most likely the patient has a viral gastroenteritis. He does have a very mild elevation of the amylase and lipase which could indicate a very mild pancreatitis. In either event the recommendation is to keep very well-hydrated. He is to eat small frequent meals with low-fat foods. Obviously if the symptoms are worsening or he is starting to get significant pain then a repeat evaluation would be warranted. He has tested negative for coronavirus here today. Additionally the patient does have significant orthostasis. He did receive a liter of IV fluids here today which will likely help some with that. The drop in blood pressure likely did contribute to his 2 falls at home. He has been advised to wait a good 20 seconds before taking off when he stands up. Additionally he may benefit from a cane or a walker at home to prevent further falls. Also in the longer run he may benefit from physical therapy to improve strength and reduce falls. The patient may also benefit from a change to a blood pressure medication that does not reduce his heart rate so much in light of the orthostasis. He will be written for some Zofran to control any further nausea. ER warnings were given for any worsening. He will follow back up with his primary care doctor next week.
[2020-04-18 15:54] VITALS: BP 175/75
[2020-04-18 15:56] VITALS: TEMP 98.1
== END 2020-04-18 15:42 | disposition home or self-care (01) ==
LOC: ER 10:49
DX: A08.4 Viral intestinal infection, unspecified (principal); I95.1 Orthostatic hypotension; R00.1 Bradycardia, unspecified; Z20.822 Contact with and (suspected) exposure to COVID-19; E11.9 Type 2 diabetes mellitus without complications; I10 Essential (primary) hypertension; Z79.82 Long term (current) use of aspirin; Z79.899 Other long term (current) drug therapy; Z79.84 Long term (current) use of oral hypoglycemic drugs
CPT/HCPCS: 36415; 70450; 74019; 80053; 82150; 82550; 82553; 83036; 83605; 83690; 83735; 83880; 84443; 84484; 85025; 85379; 85610; 85730; 87635; 93005; J7030

== ENCOUNTER → 2020-04-25 | Outpatient (CLI) | payer MEDICARE, OTHER | LOC: BFHH 14:15 | PROVIDERS: ATTEND Family Medicine | DX: Z00.00 Encounter for general adult medical examination without abnormal findings (principal); I10 Essential (primary) hypertension; E11.42 Type 2 diabetes mellitus with diabetic polyneuropathy; R42 Dizziness and giddiness; E78.00 Pure hypercholesterolemia, unspecified ==

== ENCOUNTER → 2020-05-01 | Outpatient (CLI) | payer MEDICARE, OTHER | LOC: BFHH 12:52 | PROVIDERS: ATTEND Family Medicine | DX: R53.83 Other fatigue (principal) ==